=== PATIENT | female | born 1980 | race Caucasian/White ===

== ENCOUNTER 2022-03-18 15:00 | Emergency (ER) | payer OTHER ==
[2022-03-18 17:12] LABS: HEMATOCRIT 40.6 % (37.0-47.0); HEMOGLOBIN 13.6 g/dL (12.5-16.0); MEAN PLATELET VOLUME 9.5 fl (7.4-10.4); RED BLOOD COUNT 4.67 M/mm3 (4.10-5.30); RED CELL DISTRIBUTION WIDTH 12.8 % (11.5-14.5); WHITE BLOOD COUNT 7.9 K/mm3 (4.8-10.8)
[2022-03-18 17:15] LABS: URINE APPEARANCE HAZY; URINE BILIRUBIN NEGATIVE (NEGATIVE); URINE COLOR YELLOW; URINE KETONE 2+ (NEGATIVE); URINE PROTEIN(semi-quant) NEGATIVE (NEGATIVE)
[2022-03-18 17:16] LABS: URINE BLOOD NEGATIVE (NEGATIVE); URINE LEUKOCYTE ESTERASE TRACE (NEGATIVE); URINE MUCUS PRESENT (NOT PRESENT); URINE NITRATE NEGATIVE (NEGATIVE); URINE UROBILINOGEN NORMAL (NORMAL); URINE WBC 0-1 /hpf (0-3)
[2022-03-18 17:22] LABS: ALBUMIN 4.6 g/dL (3.5-5.0)
[2022-03-18 17:23] LABS: POTASSIUM 3.4 mmol/L (3.5-5.1)
[2022-03-18 17:24] LABS: CALCIUM 9.3 mg/dL (8.3-10.5)
[2022-03-18 17:25] LABS: TOTAL PROTEIN 7.8 g/dL (6.4-8.3)
[2022-03-18 17:27] LABS: TOTAL BILIRUBIN 1.2 mg/dL (0.2-1.2)
[2022-03-18] MEDS ORDERED: ESCITALOPRAM20 MG PO (17:52)
[2022-03-18] MEDS ORDERED: ABILIFY 10MG TA10 MG PO (18:22)
[2022-03-18 19:00] VITALS: BP 124/78
== END 2022-03-18 19:00 | disposition home or self-care (01) ==
LOC: ED 15:00
PROVIDERS: Family Medicine
DX: F32.A Depression, unspecified (principal); Z28.311 Partially vaccinated for COVID-19; Z86.59 Personal history of other mental and behavioral disorders

== ENCOUNTER 2022-03-25 09:44 | Emergency (ER) | payer OTHER ==
[~2022-03-25] VITALS: Ht 165.1 cm; Wt 90.9 kg
[~2022-03-25 09:44] MED LIST: ABILIFY 10MG TA10 MG PO; ESCITALOPRAM20 MG PO
[2022-03-25] MEDS ORDERED: JARDIANCE10 MG PO (10:37)
[2022-03-25 11:32] LABS: BASO # 0.05 K/mm3 (0.02-0.10); EOS # 0.11 K/mm3 (0.04-0.40); EOS % 1.2 % (1.0-5.0); HEMATOCRIT 42.9 % (37.0-47.0); HEMOGLOBIN 14.2 g/dL (12.5-16.0); LYMPH# 1.53 K/mm3 (1.50-4.00); MEAN CELL VOLUME 88 fl (78-100); MEAN CORPUSCULAR HEMOGLOBIN 29 pg (27-31); MEAN CORPUSCULAR HGB CONC 33 g/dL (33-37); MEAN PLATELET VOLUME 9.4 fl (7.4-10.4); MONO # 0.53 K/mm3 (0.20-0.80); NEU # 7.19 K/mm3 (1.40-6.50); PLATELET COUNT 379 K/mm3 (130-400); WHITE BLOOD COUNT 9.4 K/mm3 (4.8-10.8)
[2022-03-25 11:32] LABS: URINE WBC 0 /hpf (0-3)
[2022-03-25 11:41] LABS: ALBUMIN 4.8 g/dL (3.5-5.0); POTASSIUM 4.2 mmol/L (3.5-5.1); SODIUM 140 mmol/L (136-145)
[2022-03-25 11:42] LABS: CALCIUM 9.7 mg/dL (8.3-10.5)
[2022-03-25 11:43] LABS: GLUCOSE 122 mg/dL (65-105)
[2022-03-25 11:44] LABS: TOTAL PROTEIN 8.3 g/dL (6.4-8.3)
[2022-03-25 11:45] LABS: CARBON DIOXIDE 22 mmol/L (22-29); TOTAL BILIRUBIN 0.7 mg/dL (0.2-1.2)
[2022-03-25 11:49] LABS: AST-SGOT 16 U/L (5-34)
[2022-03-25 11:50] LABS: ALT/SGPT 21 U/L (0-55)
[2022-03-25 12:00] LABS: ACETAMINOPHEN < 1 ug/mL; ALCOHOL IN-HOUSE < 10 mg/dL (<10)
[2022-03-25 12:01] LABS: URINE APPEARANCE CLEAR; URINE COLOR YELLOW; URINE PROTEIN(semi-quant) NEGATIVE (NEGATIVE)
[2022-03-25 12:02] LABS: URINE BILIRUBIN NEGATIVE (NEGATIVE); URINE BLOOD 50 ery/uL (NEGATIVE); URINE KETONE NEGATIVE (NEGATIVE); URINE LEUKOCYTE ESTERASE NEGATIVE (NEGATIVE); URINE NITRATE NEGATIVE (NEGATIVE); URINE UROBILINOGEN NORMAL (NORMAL)
[2022-03-25 14:40] VITALS: BP 124/90
== END 2022-03-25 14:40 ==
LOC: ED 09:44
PROVIDERS: Nurse Practitioner
DX: F32.A Depression, unspecified (principal)

== ENCOUNTER 2022-07-12 08:00 | Outpatient (RCR) | payer OTHER ==
[~2022-07-12 08:00] MED LIST changes: +JARDIANCE10 MG PO
== END 2022-08-09 | disposition home or self-care (01) ==
LOC: PT
DX: M25.519 Pain in unspecified shoulder (principal)

== ENCOUNTER 2024-08-24 16:26 | Emergency (ER) | payer OTHER ==
[~2024-08-24] VITALS: Ht 160 cm; Wt 86.4 kg
[2024-08-24 17:57] LABS: BASO # 0.03 K/mm3 (0.02-0.10); EOS # 0.23 K/mm3 (0.04-0.40); EOS % 2.3 % (1.0-5.0); HEMATOCRIT 42.3 % (37.0-47.0); HEMOGLOBIN 14.6 g/dL (12.5-16.0); LYMPH# 3.35 K/mm3 (1.50-4.00); MEAN CELL VOLUME 85 fl (78-100); MEAN CORPUSCULAR HEMOGLOBIN 29 pg (27-31); MEAN CORPUSCULAR HGB CONC 35 g/dL (33-37); MEAN PLATELET VOLUME 9.2 fl (7.4-10.4); MONO # 0.61 K/mm3 (0.20-0.80); NEU # 5.63 K/mm3 (1.40-6.50); PLATELET COUNT 359 K/mm3 (130-400); RED BLOOD COUNT 4.96 M/mm3 (4.10-5.30); RED CELL DISTRIBUTION WIDTH 12.9 % (11.5-14.5); WHITE BLOOD COUNT 9.9 K/mm3 (4.8-10.8)
[2024-08-24 18:00] LABS: ALBUMIN 4.6 g/dL (3.5-5.0); SODIUM 139 mmol/L (136-145)
[2024-08-24 18:01] LABS: CALCIUM 9.7 mg/dL (8.3-10.5)
[2024-08-24 18:03] LABS: GLUCOSE 146 mg/dL (65-105); TOTAL PROTEIN 8.3 g/dL (6.4-8.3)
[2024-08-24 18:04] LABS: CARBON DIOXIDE 19 mmol/L (22-29); TOTAL BILIRUBIN 0.8 mg/dL (0.2-1.2)
[2024-08-24 18:08] LABS: ALCOHOL IN-HOUSE < 10 mg/dL (<10); AST-SGOT 14 U/L (5-34)
[2024-08-24 18:09] LABS: ALT/SGPT 28 U/L (0-55)
[2024-08-24 18:12] LABS: ACETAMINOPHEN < 1.0 ug/mL (< 10.0)
[2024-08-24 19:17] LABS: URINE APPEARANCE CLEAR (CLEAR); URINE COLOR YELLOW (YELLOW); URINE PROTEIN(semi-quant) NEGATIVE (NEGATIVE)
[2024-08-24 19:18] LABS: URINE BILIRUBIN NEGATIVE (NEGATIVE); URINE BLOOD NEGATIVE (NEGATIVE); URINE GLUCOSE 2+ (NEGATIVE); URINE KETONE NEGATIVE (NEGATIVE); URINE LEUKOCYTE ESTERASE NEGATIVE (NEGATIVE); URINE MUCUS PRESENT (NOT PRESENT); URINE NITRATE NEGATIVE (NEGATIVE)
[2024-08-24 22:03] VITALS: BP 149/98
== END 2024-08-24 22:03 ==
LOC: ED 16:26
PROVIDERS: Family Medicine
DX: F32.A Depression, unspecified (principal); F39 Unspecified mood [affective] disorder; F31.9 Bipolar disorder, unspecified